=== PATIENT | female | born 1980 | race Hispanic/Latino ===

== ENCOUNTER 2017-04-12 12:54 | Inpatient (IN) | payer OTHER ==
[~2017-04-12] VITALS: Ht 157.5 cm; Wt 57.2 kg
[~2017-04-12 12:54] MED LIST: DOCU10CA PO; IBUP80TA PO; PERCOCET PO
[2017-04-12] MEDS ORDERED: ONDANSETRON 4MG/2ML VIAL (J2405) IV ONE (13:45)
[2017-04-12] MEDS ORDERED: NS 1,000 ML IV ONE (13:45)
[2017-04-12 14:02] LABS: BASO % 0.3 % (0.0-1.0); EOS # 0.1 K/mm3 (0.0-0.50); EOS % 1.5 % (0.0-3.0); LARGE UNSTAINED CELL # 0.1 K/mm3 (0.0-0.4); LARGE UNSTAINED CELL % 3.1 % (0.0-4.0); LYMPH # 0.6 K/mm3 (1.5-4.5); MEAN CORPUSCULAR HEMOGLOBIN 18.4 pg (27.0-33.0); MEAN CORPUSCULAR HGB CONC 26.9 g/dl (32.0-36.5); MEAN CORPUSCULAR VOLUME 68.4 fl (80.0-96.0); MONO # 0.4 K/mm3 (0.0-0.8); NEUTROPHILS # 3.3 K/mm3 (1.8-7.7); NEUTROPHILS % 74.1 % (36.0-66.0); PLATELET COUNT, AUTOMATED 331 k/mm3 (150-450); RED CELL DISTRIBUTION WIDTH 18.9 % (11.5-14.5); WHITE BLOOD COUNT 4.4 K/mm3 (4.0-10.0)
[2017-04-12 14:21] LABS: ADD MORPHOLOGY? YES
[2017-04-12 14:24] LABS: ALBUMIN 4.1 GM/DL (3.2-5.2); ALBUMIN/GLOBULIN RATIO 1.05 (1.00-1.93); ALKALINE PHOSPHATASE 73 U/L (45-117); ALT/SGPT 17 U/L (12-78); AMYLASE 65 U/L (25-115); ANION GAP 8 MEQ/L (8-16); AST/SGOT 18 U/L (15-37); BILIRUBIN,DIRECT < 0.1 MG/DL (0.0-0.2); BILIRUBIN,TOTAL 0.4 MG/DL (0.2-1.0); BLOOD UREA NITROGEN 12 MG/DL (7-18); CALCIUM LEVEL 8.6 MG/DL (8.5-10.1); CARBON DIOXIDE LEVEL 23 MEQ/L (21-32); CHLORIDE LEVEL 107 MEQ/L (98-107); CREATININE FOR GFR 0.53 MG/DL (0.55-1.02); GLOMERULAR FILTRATION RATE > 60.0 (>60); GLUCOSE, FASTING 90 MG/DL (70-105); POTASSIUM SERUM 3.7 MEQ/L (3.5-5.1); SODIUM LEVEL 138 MEQ/L (136-145)
[2017-04-12 14:45] LABS: ANISOCYTOSIS 2+; HYPOCHROMASIA 3+; MICROCYTOSIS 3+
[2017-04-12] MEDS ORDERED: IBUP40TA PO (15:46)
[2017-04-12 16:10] LABS: CONTROL LINE HCG INT CTR LINE PRESENT
[2017-04-12] MEDS ORDERED: ACETAMINOPHEN TAB 650MG DOSE (2X325MG) PO PRN (16:30)
[2017-04-12] MEDS ORDERED: ONDANSETRON 4MG/2ML VIAL (J2405) IV PRN (16:30)
[2017-04-12] MEDS ORDERED: BISACODYL 5 MG TAB PO PRN (16:30)
[2017-04-12] MEDS ORDERED: PANTOPRAZOLE 40MG INJ (PROTONIX) (C9113) IV SCH (16:30)
[2017-04-12] MEDS ORDERED: MORPHINE 2 MG/ML 1ML SYRINGE IV PRN (16:30)
--- NOTE | 2017-04-12 17:34 | HPE ---
DATE OF ADMISSION: 04/12/2017 PRIMARY CARE PROVIDER: Kermit Mcdaniels. However, the patient does not know the name of the primary care physician. CHIEF COMPLAINT: Fatigue, abdominal pain, nausea and vomiting as well as episodes of hematochezia. HISTORY OF PRESENT ILLNESS: The patient is a 37-year-old female with no past medical history who presented to the emergency room (ER) due to experiencing abdominal discomfort as well as nausea and vomiting. The patient expressed that she has been having these symptoms for a long time. However, since October 2016, her symptoms have increased. The patient expressed that she is mostly constipated. However, sometimes she sees a small amount of blood in her stool. The patient expressed that she is also nauseated and her appetite has decreased recently. She eats small portions of food four times a day. The patient expressed that about two months ago, she was seen by Kermit Mcdaniels physician who performed the stool tests and diagnosed the patient with Helicobacter (H) pylori. The patient was started on antibiotics. However, the patient cannot remember the name of the antibiotics. She continued antibiotics for a month an was instructed to have another stool test which was negative for H. pylori. However, the patient expressed that for the past month she has lost about 10 pounds. The patient tried to keep herself hydrated. patient on average has one episodes of vomiting everyday however did not see any abnormal color in her vomit. For the past two months, her vomiting had increased to about two episodes per day. The patient also feels that she has become more pale in the recent month. Her periods are regular and the patient does not have menorrhagia. The patient is from [place] and travels to [place] every 2- 3 years. The patient expressed that over there she drinks bottled water. However, the patient also eat at the restaurants. None of her friends or family members have the same symptoms. The patient also expressed that she has been recently noticing lightheadedness and dizziness, especially when she stands up from a sitting position however has not lost her consciousness. The patient expressed that these symptoms decrease by sitting. The patient also expressed that at night she has been experiencing palpitations for the past several months as well as being out of breath, especially with activities which started the past month. PAST MEDICAL HISTORY: None. ALLERGIES: No known drug allergies. PAST SURGICAL HISTORY: 1. Bilateral tubal ligation. 2. (C) section times three. HOME MEDICATIONS: Ibuprofen 400 mg tablet by mouth as needed. SOCIAL HISTORY: The patient lives with her . The patient has three children, two sons and one daughter who are healthy for their age. The patient does not have any pets at home. The patient is from [place] and every 2-3 years travels to [place] for a visit. FAMILY HISTORY: The patient's mother due to stomach cancer. The patient's father due to lung cancer secondary to smoking. The patient has five sisters who are healthy for their age. REVIEW OF SYSTEMS: The patient denied experiencing fever, chills, or night sweats. The patient, however, lost about 10 pounds for the past month. HEENT: The patient expressed to experiencing blurry vision for the past several months and lightheadedness, especially with standing from a sitting position. However, the patient denies acute hearing changes. The patient denies problems with chewing food. NECK: The patient denies lumps, bumps, or decreased range of motion of her neck. HEART: The patient expressed that she has been experiencing palpitations as well as racing heartbeat. However, the patient denies chest pain. LUNGS: The patient has been experiencing shortness of breath. However, no coughing. ABDOMEN: The patient has abdominal pain and discomfort mostly in the mid abdomen area. She also has constipation and her bowel movement is very two days. However, the patient denies diarrhea. The patient has been experiencing blood in her stool. NEUROLOGIC: The patient denies history of transient ischemic attacks (TIAs), seizures, or seizure-type activities. PHYSICAL EXAMINATION: VITAL SIGNS: Temperature 98.3, pulse 95, respiratory rate 16, blood pressure 123/69, pulse oximetry 100% on room air. HEENT: Normocephalic, atraumatic. Pupils are equal and reactive to light. Oral mucosa is moist. NECK: Soft, supple. No lymphadenopathy. No thyromegaly. No jugular venous distention (JVD). HEART: Regular rate and rhythm with normal S1, S2. ABDOMEN: Soft, tender to palpation in all quadrants, especially the left and right lower abdominal quadrants. Positive bowel sounds in all quadrants. RECTAL: Guaiac was positive. No blood per rectum. Good sphincter tone. NEUROLOGIC: Cranial nerves II-XII grossly intact. No focal deficits. EXTREMITIES: No lower extremity edema, +2 pulses in both lower extremities. Normal range of motion in both upper and lower extremities and normal strength in both upper and lower extremities (5/5). LUNGS: Clear breath sounds bilaterally with good air movement. LABORATORY DATA: White blood cells 4.4, red blood cells 4.09, hemoglobin 7.5, hematocrit 27.9, MCV 68.4, MCH 18.4, MCHC 26.9, RDW 18.9, platelets 331, neutrophil percentage 74.1, lymphocyte percentage 11, monocyte percentage 10, eosinophil percentage 1.5, basophil percentage 0.3, leukocyte percentage 3.1. Sodium 138, potassium 3.7, chloride 107, carbon dioxide 23, anion gap 8, BUN 12, creatinine 0.53, glomerular filtration rate more than 60, fasting glucose 90, lactic acid 0.9, calcium 8.6, total bilirubin 0.4, direct bilirubin 0.1, AST 18, ALT 17, alkaline phosphatase 73, total protein 8, albumin 4.4, amylase 65, lipase 134. HCG qualitative negative. UA: Urine color yellow, urine appearance clear, urine pH 7, urine specific gravity 1.015, urine protein negative, urine glucose negative, urine ketones 1+, urine blood negative, urine nitrite negative, urine bilirubin negative, urine urobilinogen 0.2, urine leukocyte esterase negative, urine white blood cells 0, urine red blood cells 1, urine hyaline cast 0, urine bacteria negative, urine squamous epithelial cell 2. Urine and blood cultures pending. Gastrointestinal tract panel is pending. ASSESSMENT AND PLAN: 1. Symptomatic anemia. This could be secondary to H. Pylori causes gastric ulcer versus gastric cancer. At this point, the patient is scheduled to have two unit of RBC. We have consulted Dr. Palacios and based on his recommendations patient is on clear liquid diet. we will check the hemoglobin and hematocrit every six hours. The patient is also on Protonix 40 mg twice a day IV as well as Carafate 1 mg by mouth four times a day. Dr. Palacios has scheduled the patient to do esophagogastroduodenoscopy (EGD) with possible biopsy. Lactic acid was negative. 2. Deep vein thrombosis (DVT) prophylaxis. Due to gastrointestinal bleeding, we will continue the patient on thromboembolic-deterrent stockings (TEDS) and sequential compression devices. My preceptor for this patient encounter was Dr. Shandra Wiley. The preceptor was physically present in the building during the encounter and was fully available as needed. All aspects of the patient interview, examination, medical decision making process, and medical care plan development were reviewed and approved by the preceptor. The preceptor is aware and concurs with the plan as stated in the body of this note and will attest to such by his/her co-signature. CONCHA
[2017-04-12] MEDS: SUCRALFATE 1 GM TAB PO SCH ×2 (17:41→21:29)
[2017-04-12] MEDS: PERCOCET 5MG/325MG TAB PO PRN (17:43)
[2017-04-12 18:20] VITALS: BP 124/79
[2017-04-12] MEDS: PANTOPRAZOLE 40MG INJ (PROTONIX) (C9113) IV SCH (19:00)
[2017-04-12] MEDS ORDERED: OMEPRAZOLE 20 MG CAP PO SCH (21:00)
[2017-04-12] MEDS: D5W/0.9% SODIUM CHLORIDE 1,000 ML IV SCH (21:27)
[2017-04-12 22:02] VITALS: BP 136/84
[2017-04-13] VITALS (10 sets, daily range): BP systolic 100–127; BP diastolic 60–90
[2017-04-13] MEDS: PERCOCET 5MG/325MG TAB PO PRN (00:01)
[2017-04-13] MEDS: D5W/0.9% SODIUM CHLORIDE 1,000 ML IV SCH ×2 (04:42→12:57)
[2017-04-13] MEDS: PANTOPRAZOLE 40MG INJ (PROTONIX) (C9113) IV SCH ×2 (05:18→17:47)
[2017-04-13 06:00] LABS: DIFF SLIDE NUMBER 104; MEAN CORPUSCULAR HEMOGLOBIN 21.7 pg (27.0-33.0); MEAN CORPUSCULAR HGB CONC 29.5 g/dl (32.0-36.5); PLATELET COUNT, AUTOMATED 281 k/mm3 (150-450); RED CELL DISTRIBUTION WIDTH 21.6 % (11.5-14.5); WHITE BLOOD COUNT 2.9 K/mm3 (4.0-10.0)
[2017-04-13 06:12] LABS: ALBUMIN/GLOBULIN RATIO 0.94 (1.00-1.93); ALKALINE PHOSPHATASE 59 U/L (45-117); ALT/SGPT 15 U/L (12-78); ANION GAP 6 MEQ/L (8-16); AST/SGOT 18 U/L (15-37); BILIRUBIN,TOTAL 0.5 MG/DL (0.2-1.0); BLOOD UREA NITROGEN 7 MG/DL (7-18); CALCIUM LEVEL 7.7 MG/DL (8.5-10.1); CARBON DIOXIDE LEVEL 23 MEQ/L (21-32); CHLORIDE LEVEL 112 MEQ/L (98-107); GLOMERULAR FILTRATION RATE > 60.0 (>60); GLUCOSE, FASTING 97 MG/DL (70-105); MAGNESIUM LEVEL 1.8 MG/DL (1.8-2.4); POTASSIUM SERUM 3.3 MEQ/L (3.5-5.1); SODIUM LEVEL 141 MEQ/L (136-145); TOTAL PROTEIN 6.4 GM/DL (6.4-8.2)
[2017-04-13 06:26] LABS: ALBUMIN 3.1 GM/DL (3.2-5.2); MEAN CORPUSCULAR VOLUME 73.7 fl (80.0-96.0)
[2017-04-13 07:20] LABS: BASOPHILS 2 % (0-4)
[2017-04-13 07:21] LABS: ANISOCYTOSIS 1+; HYPOCHROMASIA 3+; MICROCYTOSIS 2+
[2017-04-13] MEDS: KCL 10MEQ IN 100ML SWI (KRUN) 10 MEQ in APPROPRIATE DILUENT 1 EA IV SCH ×4 (08:16→09:00)
[2017-04-13] MEDS: SUCRALFATE 1 GM TAB PO SCH ×4 (08:33→21:31)
[2017-04-13] MEDS ORDERED: PROPOFOL 200 MG/20 ML VIAL As Ordered ONE (10:13)
[2017-04-13] MEDS ORDERED: LIDOCAINE 2% INJ 100 MG/5 ML SDV (FOR ANES.) As Ordered ONE (10:13)
--- NOTE | 2017-04-13 10:13 | ECGEPIP ---
Stationary ECG Study [facility] - ED Test Date: 2017-04-12 Pat Name: SULAIMAN VIEYRA Department: Room: [place] [address] Gender: F Speed Reading Teacher: SINAN : 1980 Requested By: Malachi Linares Order Number: [id number] Reading MD: Amelia Pettit Measurements Intervals [place] Rate: 93 P: 64 TX: 156 QRS: -1 QRSD: 102 T: 24 QT: 364 QTc: 453 Interpretive Statements SINUS RHYTHM NSTTW ABNORMALITY NO PRIOR FOR COMPARISON Electronically Signed On 04-13-2017 10:13:24 EDT by Amelia Pettit
[2017-04-13] MEDS ORDERED: POTASSIUM CHLORIDE 10 MEQ SR TABLET PO ONE (10:15)
--- NOTE | 2017-04-13 10:19 | ROOR ---
Patient Name: Sobia Go Procedure Date: 04/13/2017 10:06 AM Date of : 1980 Age: 37 Room: [facility] Gender: Female Note Status: Finalized Procedure: Upper GI endoscopy Indications: Hematemesis Providers: DO Travis Patterson MD: KAMILLA KOHLI MD Requesting Provider: Medicines: Propofol per Anesthesia Complications: No immediate complications. Procedure: Pre-Anesthesia Assessment: - Prior to the procedure, a History and Physical was performed, and patient medications and allergies were reviewed. The patient is competent. The risks and benefits of the procedure and the sedation options and risks were discussed with the patient. All questions were answered and informed consent was obtained. Patient identification and proposed procedure were verified by the physician, the nurse, the anesthesiologist and the planetarium sky show technician in the endoscopy suite. Mental Status Examination: alert and oriented. Airway Examination: normal oropharyngeal airway and neck mobility. Respiratory Examination: clear to auscultation. CV Examination: normal. Prophylactic Antibiotics: The patient does not require prophylactic antibiotics. Prior Anticoagulants: The patient has taken no previous anticoagulant or antiplatelet agents. ASA Grade Assessment: I - A normal, healthy patient. After reviewing the risks and benefits, the patient was deemed in satisfactory condition to undergo the procedure. The anesthesia plan was to use monitored anesthesia care (MAC). Immediately prior to administration of medications, the patient was re-assessed for adequacy to receive sedatives. The heart rate, respiratory rate, oxygen saturations, blood pressure, adequacy of pulmonary ventilation, and response to care were monitored throughout the procedure. The physical status of the patient was re-assessed after the procedure. The Endoscope was introduced through the mouth, and advanced to the third part of duodenum. The upper GI endoscopy was accomplished without difficulty. The patient tolerated the procedure well. Findings: The esophagus was normal. Many non-bleeding cratered gastric ulcers were found in the prepyloric region of the stomach. Biopsies were taken with a cold forceps for Helicobacter pylori testing. Estimated blood loss was minimal. Diffuse mild inflammation characterized by congestion (edema) and erythema was found in the entire examined stomach. The exam was otherwise without abnormality. Impression: - Normal esophagus. - Non-bleeding gastric ulcers. Biopsied. - Gastritis. - The examination was otherwise normal. Recommendation: - Patient has a contact number available for emergencies. The signs and symptoms of potential delayed complications were discussed with the patient. Return to normal activities tomorrow. Written discharge instructions were provided to the patient. - Await pathology results. - Return to my office in 1 week. Yonis Palacios DO 04/13/2017 10:18:36 AM This report has been signed electronically. Number of Addenda: 0 Note Initiated On: 04/13/2017 10:06 AM Estimated Blood Loss: Estimated blood loss was minimal.
--- NOTE | 2017-04-13 11:17 | CR ---
DATE OF CONSULTATION: 04/13/2017 CHIEF COMPLAINT: Is abdominal pain, nausea, vomiting, diarrhea, and fatigue. HISTORY OF PRESENT ILLNESS: The patient is a 37-year-old female presents to the emergency room (ER) with abdominal pain, nausea, and vomiting. These symptoms have been going on for a long period of time. However, over the past few months, they have been getting worse. She has the diagnosis of Helicobacter (H.) pylori back when she was 18 years that was supposedly treated. Then, around October of last year, she had a stool test again that showed H. pylori, and she was treated again. She has been having persistent nausea, vomiting, and increased weakness recently, as well as occasional streaks of blood in her stool. Therefore, she came in to the emergency room. She was found have fecal occult blood positive, anemia with a hemoglobin of 7.5; and, therefore, I was asked to evaluate. She was admitted to medicine service. I was consulted. The patient is from [place] and speaks poor [place]. I was able to speak with her enough so that she understood why I was seeing her and what we were planning to do as far as endoscopy; and then, her was able to translate the rest for us. I was told that she was having some blood in her emesis. However, she is denying that now. She did have some of the bleeding in her stool, and it is not with every bowel movement. It is just occasionally. No history of transfusions in the past. She is having abdominal pain, but it is all epigastric, gets worse with foods. No other abdominal pains. The nausea, vomiting, and diarrhea have been worse for the past couple of weeks. She also has been tested positive for rotavirus A, and that may be exacerbating some of her symptoms. No medications at home for acid reflux or heartburn. Denies any tobacco abuse. Drinks alcohol socially. 1-2 caffeinated beverages a day. Very minimal acidic and spicy foods. PAST MEDICAL HISTORY: Negative. ALLERGIES: None. HOME MEDICATIONS: - ibuprofen as needed PAST SURGICAL HISTORY: Bilateral tubal ligation. (C) section times three. SOCIAL HISTORY: Denies drug, alcohol, tobacco abuse. FAMILY HISTORY: Noncontributory. REVIEW OF SYSTEMS: Pertinent positives and negatives in history of present illness (HPI). PHYSICAL EXAMINATION General: Alert and oriented times three. No acute stress. Vital signs: Temperature 98.3, pulse 95, respirations 16, blood pressure 123/69, pulse oximetry 100% on room air. HEENT: Pupils equal, round, and react to light and accommodation. Heart: S1, S2. Regular rate and rhythm. Lungs: Clear to auscultation bilaterally. Abdomen: Soft. Tender to palpation epigastric. No rebound, guarding, or rigidity. Bowel sounds positive. Extremities: No clubbing, cyanosis, or edema. LABORATORIES: White count is 2.9, hemoglobin 7.5 on admission, up to 9 after receiving a blood transfusion, and it is currently at 8.9, platelets 281. ASSESSMENT AND PLAN: The patient is 37-year-old female with a history of Helicobacter (H.) pylori in the past, who presents with nausea, vomiting, diarrhea, and epigastric pain. She also was recently diagnosed with rotavirus in her stool. That is likely contributing to some of the nausea, vomiting, and diarrhea. However, that does not necessarily account for the bleeding or the epigastric pain. Recommendation at this time is to proceed with esophagogastroduodenoscopy (EGD). If EGD comes back negative, then she will likely need a colonoscopy. Risks and benefits of the procedure not limited to but including bleeding, infection, perforation were discussed with both the patient and the patient's . She signed consent, and procedure will be planned. After the procedure, I will be able to give further recommendations.
[2017-04-14 04:00] VITALS: BP 123/75
[2017-04-14 05:39] LABS: BASO % 0.3 % (0.0-1.0); EOS # 0.1 K/mm3 (0.0-0.50); LARGE UNSTAINED CELL # 0.2 K/mm3 (0.0-0.4); LARGE UNSTAINED CELL % 4.4 % (0.0-4.0); LYMPH # 1.2 K/mm3 (1.5-4.5); LYMPH % 28.3 % (24.0-44.0); MEAN CORPUSCULAR HEMOGLOBIN 21.8 pg (27.0-33.0); MEAN CORPUSCULAR HGB CONC 30.2 g/dl (32.0-36.5); MEAN CORPUSCULAR VOLUME 72.1 fl (80.0-96.0); MONO # 0.5 K/mm3 (0.0-0.8); MONO % 14.9 % (0.0-5.0); NEUTROPHILS # 1.8 K/mm3 (1.8-7.7); NEUTROPHILS % 50.1 % (36.0-66.0); PLATELET COUNT, AUTOMATED 321 k/mm3 (150-450); RED CELL DISTRIBUTION WIDTH 22.2 % (11.5-14.5); WHITE BLOOD COUNT 3.6 K/mm3 (4.0-10.0)
[2017-04-14 05:41] LABS: ADD MORPHOLOGY? YES
[2017-04-14 05:55] LABS: ALBUMIN 3.6 GM/DL (3.2-5.2); ALKALINE PHOSPHATASE 69 U/L (45-117); ALT/SGPT 18 U/L (12-78); ANION GAP 7 MEQ/L (8-16); AST/SGOT 23 U/L (15-37); BILIRUBIN,TOTAL 0.4 MG/DL (0.2-1.0); BLOOD UREA NITROGEN 9 MG/DL (7-18); CALCIUM LEVEL 8.6 MG/DL (8.5-10.1); CARBON DIOXIDE LEVEL 26 MEQ/L (21-32); CHLORIDE LEVEL 108 MEQ/L (98-107); CREATININE FOR GFR 0.66 MG/DL (0.55-1.02); GLOMERULAR FILTRATION RATE > 60.0 (>60); GLUCOSE, FASTING 95 MG/DL (70-105); POTASSIUM SERUM 3.6 MEQ/L (3.5-5.1); SODIUM LEVEL 141 MEQ/L (136-145); TOTAL PROTEIN 7.6 GM/DL (6.4-8.2)
[2017-04-14 06:44] LABS: ANISOCYTOSIS 1+; HYPOCHROMASIA 3+; MICROCYTOSIS 2+
[2017-04-14] MEDS: PANTOPRAZOLE 40MG INJ (PROTONIX) (C9113) IV SCH (06:46)
[2017-04-14 08:00] VITALS: BP 129/74
[2017-04-14] MEDS: SUCRALFATE 1 GM TAB PO SCH (09:18)
[2017-04-14] MEDS ORDERED: PANT40TA2 PO (09:28)
[2017-04-14] MEDS ORDERED: SUCR1TA PO (09:28)
--- NOTE | 2017-04-14 13:24 | IPN ---
DATE: 04/13/2017 SUBJECTIVE: Ms. Go is a 37-year-old female who was seen and examined at the bedside. Patient denies chest pain, orthopnea or paroxysmal nocturnal dyspnea (PND). Patient also denies nausea or vomiting, diarrhea or constipation. The patient had EGD done this morning without any complications. The patient expressed that today she feels better. The patient has tried some solid food, which she tolerated well. OBJECTIVE: VITAL SIGNS: Temperature 98.9, pulse 95, respiratory rate 16, blood pressure 100/70, pulse oximetry 99% on room air. Total intake from yesterday 1010, total output 500. GENERAL APPEARANCE: Patient was lying in bed in no acute distress. HEENT: Normocephalic, atraumatic. Pupils are equally reactive to light. Oral mucosa is moist. NECK: Soft, supple. No lymphadenopathy. No thyromegaly. HEART: Regular rate and rhythm. Normal S1 and S2. ABDOMEN: Soft, nontender. Positive bowel sounds in all quadrants. LUNGS: Clear breath sounds bilaterally. Good air movement. EXTREMITIES: No lower extremity edema. +2 pulses in both lower extremities. LABORATORY DATA: White blood cells 2.9, red blood cells 4.12, hemoglobin 8.9, hematocrit 30.3, MCV 73.7, MCH 21.7, MCHC 29.5, RDW 21.6, platelet count 281. Sodium 141, potassium 3.3, chloride 112, carbon dioxide 23, anion gap 6, BUN 7, creatinine 0.6, glomerular filtration rate (GFR) more than 60, fasting glucose 97, calcium 7.7, magnesium 1.8, total bilirubin 0.5, AST 18, ALT 15, alkaline phosphatase 59, total protein 6.4, albumin 3.1. ASSESSMENT/PLAN: 1. Symptomatic anemia. Patient received 2 units of red blood cells. The patient's hemoglobin and hematocrit is stable since transfusion. Dr. Palacios performed an EGD this morning which shows normal esophagus, nonbloody gastric ulcer which was biopsied as well as gastritis. At this time we are waiting for the results for the pathology. The patient has a history of H. Pylori. At this point we have started the patient on a regular diet. The patient expressed that so far she can tolerate it. If the patient is symptomatic tonight, the patient can be discharge tomorrow. 2. Hypokalemia. This is possibly secondary to GI loss. The patient will be supplemented with potassium. 3. Deep vein thrombosis (DVT) prophylaxis. Patient on thromboembolic deterrent stockings (TEDS) and sequentials. 4. Leukopenia. The patient's white blood cells have decreased when compared to yesterday. We will continue monitoring the patient's white blood cells. My preceptor for this patient encounter was Dr. Dawit Lemus. The preceptor was physically present in the building during the encounter and was fully available. As needed, all aspects of the patient interview, examination, medical decision making process, and medical care plan development were reviewed and approved by the preceptor. The preceptor is aware and concurs with the plan as stated in the body of this note and will attest to such by his/her cosignature. Edited 04/13/2017 @ 6246 [facility]
[2017-04-14] MEDS ORDERED: PANTOPRAZOLE 40MG TAB (PROTONIX) PO SCH (21:00)
--- NOTE | 2017-04-17 12:40 | DSES ---
DATE OF ADMISSION: 04/12/2017 DATE OF DISCHARGE: 04/14/2017 PRIMARY CARE PHYSICIAN: Kermit Mcdaniels physician. HAM PASSER: Dr. Palacios PROCEDURE: Esophagogastroduodenoscopy (EGD). DISCHARGE HOME MEDICATION: - pantoprazole sodium 40 mg by mouth twice a day - Carafate 1 gram by mouth four times a day HOSPITAL COURSE: Ms. Go is a 37-year-old female who presented due to experiencing fatigue, abdominal pain, nausea and vomiting, as well as episodes of blood per rectum. The patient was previously diagnosed with Helicobacter (H) pylori by Kermit Mcdaniels and was on antibiotic for 1 month. At the presentation, the patient had symptomatic anemia. Due to possibility of bleeding gastric ulcer versus other possibilities, including cancer, we have consulted Dr. Palacios. Also, the patient received two units of red blood cells, and we made the patient nothing by mouth, started the patient on Protonix 40 mg intravenously (IV) and Carafate 1 mg by mouth four times a day. The patient's lactic acid was negative. Also, we have ordered a gastrointestinal (GI) panel, and GI panel indicated the patient has rotavirus A. Dr. Palacios performed an EGD, which indicated normal esophagus, as well as nonbloody gastric ulcer, which was biopsied, as well as gastritis. After the procedure, the patient was able to tolerate oral. We gradually advanced the patient's diet. The patient was able to tolerate a regular diet. Based on Dr. Palacios's recommendation, the patient was discharged with Protonix, and the patient was discharged with Carafate as well as pantoprazole and requested that the patient followup with Dr. Palacios as an outpatient, as well as primary care physician. PRIMARY DIAGNOSIS: Symptomatic anemia. SECONDARY DIAGNOSES: Hypokalemia. Leukopenia. DIET: Regular diet. FOLLOWUP: Please followup with primary care and Dr. Palacios within 1 week. My preceptor for this patient encounter was Dr. Lemus. The preceptor was physically present in the building during the encounter and was fully available. As needed, all aspects of the patient interview, examination, medical decision making process, and medical care plan development were reviewed and approved by the preceptor. The preceptor is aware and concurs with the plan as stated in the body of this note and will attest to such by his/her cosignature. Edited 04/17/2017
== END 2017-04-14 11:22 | disposition home or self-care (01) | DRG 812 ==
LOC: M ED 13:51 → M ED INP 16:26 → M MSPAV 18:13 → M PED 04-13 22:13
PROVIDERS: ADMIT Internal Medicine Nephrology; ATTEND Internal Medicine
PROC: 30233N1 Transfusion of Nonautologous Red Blood Cells into Peripheral Vein, Percutaneous Approach (ICD-10-PCS; 2017-04-12)
PROC: 0DB78ZX Excision of Stomach, Pylorus, Via Natural or Artificial Opening Endoscopic, Diagnostic (ICD-10-PCS; principal; 2017-04-13 09:45)
DX: D64.9 Anemia, unspecified (principal); K29.70 Gastritis, unspecified, without bleeding; K25.9 Gastric ulcer, unspecified as acute or chronic, without hemorrhage or perforation; E87.6 Hypokalemia; D72.819 Decreased white blood cell count, unspecified; Z98.51 Tubal ligation status; Z80.0 Family history of malignant neoplasm of digestive organs; Z80.1 Family history of malignant neoplasm of trachea, bronchus and lung